=== PATIENT | male | born 1975 | race Caucasian/White ===

== ENCOUNTER 2017-06-30 20:18 | Emergency (ER) | payer OTHER ==
[~2017-06-30] VITALS: Ht 188 cm; Wt 94.0 kg
[~2017-06-30 20:18] MED LIST: MOTI25CH PO; ZOFR4TAB3 SL
[2017-06-30 20:35] VITALS: BP 115/101; PULSE 84; RESP 17; TEMP 98; O2SAT 97
[2017-06-30] MEDS ORDERED: LOSA100T PO (20:53)
[2017-06-30] MEDS ORDERED: ATOR20TA15 PO (20:53)
[2017-06-30 21:00] VITALS: BP 153/100; PULSE 85; RESP 18; O2SAT 97
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
[2017-06-30 21:55] VITALS: BP 156/101; PULSE 84; RESP 18; O2SAT 97
== END 2017-06-30 22:21 | disposition home or self-care (01) ==
LOC: PHED 20:18
DX: S16.1XXA Strain of muscle, fascia and tendon at neck level, initial encounter (principal); I10 Essential (primary) hypertension; E78.00 Pure hypercholesterolemia, unspecified; V49.40XA Driver injured in collision with unspecified motor vehicles in traffic accident, initial encounter; Z79.899 Other long term (current) drug therapy
CPT/HCPCS: 72040; 99283